=== PATIENT | male | born 1955 | race Caucasian/White ===

== ENCOUNTER 2018-08-18 15:52 | Emergency (ER) | payer BC ==
[~2018-08-18] VITALS: Ht 182.9 cm; Wt 120.0 kg
[2018-08-18] MEDS ORDERED: HYDROcodone/acetaminophen 10/325mg tab PO ONE (16:00)
[2018-08-18] MEDS ORDERED: iohexol 350MG/ML 100ml bottle IV ONE (16:18)
[2018-08-18 17:23] VITALS: BP 189/107
[2018-08-18] MEDS ORDERED: HYDR-4353 PO (17:27)
== END 2018-08-18 17:39 | disposition home or self-care (01) ==
LOC: ER 15:53
DX: S22.058A Other fracture of T5-T6 vertebra, initial encounter for closed fracture (principal); S22.068A Other fracture of T7-T8 thoracic vertebra, initial encounter for closed fracture; S22.078A Other fracture of T9-T10 vertebra, initial encounter for closed fracture; Z79.899 Other long term (current) drug therapy; V80.018A Animal-rider injured by fall from or being thrown from other animal in noncollision accident, initial encounter; Y93.89 Activity, other specified; Y92.89 Other specified places as the place of occurrence of the external cause; Y99.8 Other external cause status
CPT/HCPCS: 71275; 99284; Q9967